=== PATIENT | female | born 1950 | race Caucasian/White ===

== ENCOUNTER 2017-12-06 07:13 | Day surgery (SDC) | payer SELFPAY ==
[~2017-12-06 07:13] MED LIST: Buffered Lidocaine 0.9% SYRIN* 5 ML/SYR SYRINGE INTRADERM ONE
[2017-12-06] MEDS ORDERED: Dexamethasone IV* 4 MG/ML 1 ML (4 MG) ONE (08:08)
[2017-12-06] MEDS ORDERED: Clindamycin 900 MG IVPREMIX(* 900 MG/50 ML SDV IV ONE (08:08)
[2017-12-06] MEDS ORDERED: BSS OPTH.SOL* BTL ONE (08:34)
[2017-12-06] MEDS ORDERED: Lidocaine 1% MPF wEPI 200,000* 30 ML SDV ONE (08:34)
[2017-12-06] MEDS ORDERED: Bacitracin OINTMENT* 0.5% 0.5 oz TUBE ONE (08:34)
[2017-12-06] MEDS ORDERED: Artificial Tear OPHTH.OINT* 3.5 GM ONE (08:35)
[2017-12-06] MEDS ORDERED: Bupivacaine 0.25% SDV* 30 ML ONE (08:36)
[2017-12-06] MEDS ORDERED: Naloxone* 0.4 MG/ML 1 ML VIAL IV PRN (08:57)
[2017-12-06] MEDS ORDERED: fentaNYL* 50 MCG/ML 2 ML VIAL (100 MCG VIAL) ONE (09:02)
[2017-12-06] MEDS ORDERED: Lidocaine 2% PF * 5 ML VIAL ONE (09:02)
[2017-12-06] MEDS ORDERED: Midazolam* 1 MG/ML 2 ML VIAL (2 MG) ONE (09:02)
[2017-12-06] MEDS ORDERED: Propofol* 10 MG/ML 20 ML BTL IV PUSH ONE (09:02)
[2017-12-06] MEDS ORDERED: Bacitracin OPHTH.OINT* 3.5 GM ONE (09:31)
[2017-12-06 10:45] VITALS: BP 110/69
--- NOTE | 2017-12-07 08:18 | OP ---
DATE OF OPERATION: 12/06/17 - [facility] DATE OF : 46 SURGEON: Ted Angelo MD TERMINAL BLOCK ASSEMBLER: Saleem Sher MD ANESTHESIOLOGIST: Villa Dominguez DO ANESTHESIA: Local MAC. PRE-OP DIAGNOSIS: Desire for bilateral lower lid blepharoplasty. POST-OP DIAGNOSIS: Desire for bilateral lower lid blepharoplasty. OPERATIVE PROCEDURE: Conservative bilateral lower lid blepharoplasty. INDICATIONS: The patient is a 67-year-old female, who has had a desire for cosmetic improvement of the lower lid area for quite some time. I have discussed with her the full range of treatment options, alternatives, advantages , and disadvantages of each, and potential risks and complications related to the above- noted procedure in detail and all of her questions were answered to her satisfaction. She indicates she understood everything and wished to proceed. DESCRIPTION OF PROCEDURE: The patient was brought to the operating room suite and after mild sedation, was placed in appropriate position for the above-noted procedure. The patient was prepped and draped in the standard fashion and universal protocol time-out procedure was completed. Fine skin marking pen was used to yoly the area of bilateral lower lid blepharoplasty incisions, and then 1% lidocaine with 1:200,000 epinephrine was infiltrated subcutaneously in the right and left lower eye lid regions. After allowing for local anesthesia and hemostasis, attention was directed first to the right side where the pinch technique was used to determine the conservative amount of skin removal to be achieved and then the curved iris scissors was used for excision. The Ellman radiofrequency unit was used in pure-cut mode to incise through the orbicularis in the lateral jackson's-foot extension and then the tenotomy scissors were used to elevate the skin muscle flap. The lower lid flat compartment was opened laterally, medially, and in the middle sections very conservatively. With wide pressure on the globe, the extruded amount of fat was determined. With the septum open and careful gentle teasing with Q-Tips, excess fat was elevated. Bipolar cautery at the base and excision with tenotomy scissors was used to accomplish removal of excessive fat. With favorable contours achieved and with excellent hemostasis, a moist gauze was placed and attention was directed to the left side where the identical procedure was performed. With both sides completed, attention was then directed to the lateral periorbital rim area where an anchoring stitch of 5-0 Vicryl was used at the periosteal level, and then the orbicularis was approached on the skin muscle flap side. This will allow for completely tension-free skin closure. This was accomplished on both sides. 6-0 nylon in running interrupted fashion was used for skin closure. There was good vision in OS and OD at the completion of procedure in all monahan of gaze and extraocular movements were intact in all monahan of gaze. Lacri- Lube ointment was applied to the sutures and the patient was transported to the postanesthesia care unit, alert, awake, comfortable with good vision in OS and OD. The skin was sent to Pathology per protocol with no charge to the patient. All sponge and sharp counts were correct at the conclusion of the procedure. Estimated blood loss was negligible and certainly less than 3 cc total. [id number] #: [id number] MTDD
== END 2017-12-06 10:56 | disposition home or self-care (01) ==
LOC: OREAST 07:13
PROVIDERS: ATTEND Oral & Maxillofacial Surgery
DX: Z41.1 Encounter for cosmetic surgery (principal); K21.9 Gastro-esophageal reflux disease without esophagitis; R20.2 Paresthesia of skin; E78.4 Other hyperlipidemia
CPT/HCPCS: 88300; A9270-GY; J1100; J2001; J2250; J2704; J3010